=== PATIENT | female | born 1990 | race African-American/Black ===

== ENCOUNTER 2019-10-26 15:36 | Inpatient (IN) | payer MEDICAID ==
[~2019-10-26] VITALS: Ht 157.5 cm; Wt 131.5 kg
[2019-10-26] MEDS ORDERED: CEFAZOLIN SODIUM 1000MG/VIAL ONE ×2 (16:20→17:42)
[2019-10-26] MEDS ORDERED: OXYTOCIN 10 UNITS/ML 1ML ONE (16:20)
[2019-10-26] MEDS ORDERED: EPHEDRINE SULFATE 50MG/ML VIAL ONE (16:20)
[2019-10-26] MEDS ORDERED: FENTANYL CITRATE/PF 50MCG/ML 2ML VIAL ONE (16:20)
[2019-10-26] MEDS ORDERED: MORPHINE SULFATE/PF 1MG/ML 10ML AMP ONE (16:20)
[2019-10-26] MEDS ORDERED: ONDANSETRON HCL 4MG/2ML INJ ONE (16:23)
[2019-10-26] MEDS ORDERED: DEXT 5%/LR + PITOCIN 20UNITS/L 1,000 ML IV SCH (16:40)
[2019-10-26] MEDS ORDERED: LACTATED RINGERS 1,000 ML IV SCH (16:40)
[2019-10-26] MEDS ORDERED: CARBOPROST TROMETHAMINE 250 MCG/ML AMPUL IM PRN (16:45)
[2019-10-26] MEDS ORDERED: METHYLERGONOVINE MALEATE 0.2 MG/ML IM PRN (16:45)
[2019-10-26] MEDS ORDERED: CITRIC ACID/SODIUM CITRATE SOLN 30ML UDC PO SCH (16:45)
[2019-10-26] MEDS ORDERED: NALOXONE HCL 0.4 MG/ML 1ML VIAL IM PRN (16:45)
[2019-10-26] MEDS ORDERED: MISOPROSTOL 200MCG TABLET VG SCH (17:00)
[2019-10-26 17:07] LABS: BASOPHILS % 0.4 % (0.0-2.0); EOSINOPHILS % 0.4 % (0.0-5.0); HEMATOCRIT. 36.2 % (36.0-48.0); HEMOGLOBIN. 11.8 g/dL (12.0-16.0); LYMPHOCYTES % 13.9 % (20.0-50.0); MEAN CORPUSCULAR HEMOGLOBIN 25.4 pg (28.0-32.0); MEAN CORPUSCULAR VOLUME 78.3 fL (81.0-99.0); MEAN PLATELET VOLUME 8.9 fl (7.4-10.4); MONOCYTES % 8.3 % (2.0-8.0); PLATELET 272 x1000/uL (130-400); RED BLOOD CELL COUNT 4.63 mill/uL (4.2-5.4); RED CELL DISTRIBUTION WIDTH 16.9 % (11.6-14.6)
[2019-10-26 17:09] LABS: COLOR URINE DK YELLOW (YELLOW); KETONES URINE TRACE (NEGATIVE); LEUKOCYTE ESTERASE URINE 1+ (NEGATIVE); NITRITE URINE NEGATIVE (NEGATIVE); OCCULT BLOOD URINE 3+ (NEGATIVE); PROTEIN URINE 2+ (NEGATIVE); SPECIFIC GRAVITY URINE 1.026 (1.005-1.030)
[2019-10-26] MEDS ORDERED: TERBUTALINE SULFATE 1MG/ML VIAL SUBCUT ONE (17:15)
[2019-10-26 17:16] LABS: CLARITY URINE CLOUDY (CLEAR)
[2019-10-26 17:29] LABS: INR 0.9; PARTIAL THROMBOPLASTIN TIME 27.9 sec (23.4-31.0); PROTHROMBIN TIME 9.6 sec (9.6-11.0)
[2019-10-26 17:31] LABS: *AMPHETAMINES SCREEN URINE NEGATIVE (NEGATIVE); *BENZODIAZEPINES SCREEN URINE NEGATIVE (NEGATIVE); *COCAINE SCREEN URINE NEGATIVE (NEGATIVE); CANNABINOID URINE SCREEN NEGATIVE (NEGATIVE); METHADONE URINE SCREEN NEGATIVE (NEGATIVE); OPIATES URINE SCREEN NEGATIVE (NEGATIVE); PHENCYCLIDINE URINE SCREEN NEGATIVE (NEGATIVE)
[2019-10-26 17:32] LABS: *BARBITURATES SCREEN URINE NEGATIVE (NEGATIVE)
[2019-10-26 18:17] LABS: HEPATITIS B SURFACE ANTIGEN NEGATIVE
[2019-10-26] MEDS ORDERED: KETOROLAC 60MG/2ML VIAL IM ONE (18:32)
[2019-10-26] MEDS ORDERED: DIPHENHYDRAMINE 50MG/ML VIAL ONE (18:32)
[2019-10-26 21:30] VITALS: BP 121/74
[2019-10-26] MEDS ORDERED: BISACODYL 10MG SUPP PR PRN (21:30)
[2019-10-26] MEDS ORDERED: KETOROLAC 30MG/ML VIAL IV PRN (21:30)
[2019-10-26] MEDS ORDERED: IBUPROFEN 400MG TABLET PO PRN (21:30)
[2019-10-26] MEDS: DEXT 5%/LR + PITOCIN 20UNITS/L 1,000 ML IV SCH (21:30)
[2019-10-26] MEDS ORDERED: RHO(D) IMMUNE GLOBULIN 300 MCG/SYR IM PRN (21:30)
[2019-10-26] MEDS ORDERED: BUTORPHANOL TARTRATE 2 MG/ML VIAL IV PRN (21:45)
[2019-10-26] MEDS ORDERED: KETOROLAC 30MG/ML VIAL IV SCH (21:45)
[2019-10-26] MEDS ORDERED: NALOXONE HCL 0.4 MG/ML 1ML VIAL IV PRN (21:45)
[2019-10-26] MEDS: DIPHENHYDRAMINE 50MG/ML VIAL IV PRN (21:53)
[2019-10-27] VITALS: BP 125/78
[2019-10-27 04:00] VITALS: BP 134/80
[2019-10-27 07:01] LABS: BASOPHILS % 0.1 % (0.0-2.0); EOSINOPHILS % 0.1 % (0.0-5.0); HEMOGLOBIN. 10.4 g/dL (12.0-16.0); LYMPHOCYTES % 13.8 % (20.0-50.0); MEAN CORPUSCULAR HEMOGLOBIN 25.3 pg (28.0-32.0); MEAN CORPUSCULAR VOLUME 77.7 fL (81.0-99.0); MEAN PLATELET VOLUME 8.7 fl (7.4-10.4); MONOCYTES % 6.3 % (2.0-8.0); NEUTROPHILS % 79.7 % (40.0-76.0); PLATELET 248 x1000/uL (130-400); RED BLOOD CELL COUNT 4.12 mill/uL (4.2-5.4); RED CELL DISTRIBUTION WIDTH 16.8 % (11.6-14.6)
[2019-10-27] MEDS: DEXT 5%/LR + PITOCIN 20UNITS/L 1,000 ML IV SCH (07:30)
[2019-10-27 07:45] VITALS: BP 134/81
[2019-10-27] MEDS: DIPHENHYDRAMINE 50MG/ML VIAL IV PRN (11:31)
[2019-10-27 12:00] VITALS: BP 135/79
[2019-10-27 16:00] VITALS: BP 132/79
[2019-10-27 19:30] VITALS: BP 134/85
[2019-10-27] MEDS: IBUPROFEN 800MG TABLET PO PRN (22:28)
[2019-10-28 04:00] VITALS: BP 127/68
[2019-10-28] MEDS: IBUPROFEN 800MG TABLET PO PRN ×2 (04:32→10:39)
[2019-10-28 08:00] VITALS: BP 121/69
[2019-10-28] MEDS ORDERED: IBUP-2030 MT (13:30)
== END 2019-10-28 14:40 | disposition home or self-care (01) | DRG 540 ==
LOC: 8EST NSY 15:36 → OBSVTOIN 15:36 → 8 EST LDRP 16:15 → 8EST 21:51
PROVIDERS: ADMIT Obstetrics & Gynecology; ATTEND Obstetrics & Gynecology
PROC: 10D00Z1 Extraction of Products of Conception, Low, Open Approach (ICD-10-PCS; principal; 2019-10-26)
PROC: 0UB70ZZ Excision of Bilateral Fallopian Tubes, Open Approach (ICD-10-PCS; 2019-10-26)
DX: O77.0 Labor and delivery complicated by meconium in amniotic fluid (principal); O34.211 Maternal care for low transverse scar from previous cesarean delivery; O69.81X0 Labor and delivery complicated by cord around neck, without compression, not applicable or unspecified; O99.214 Obesity complicating childbirth; D62 Acute posthemorrhagic anemia; O90.81 Anemia of the puerperium; Z3A.38 38 weeks gestation of pregnancy; Z37.0 Single live birth; Z30.2 Encounter for sterilization
CPT/HCPCS: 36415; 80305; 81003; 85025; 86592; 86703; 86762; 86850; 86900; 86920; 87340; 88302; 88307; 99281; J0690; J1200; J1885; J2274; J2405; J2590; J3010; J3105; J3490; J7120

== ENCOUNTER 2019-10-30 15:59 | Emergency (ER) | payer MEDICAID ==
[~2019-10-30] VITALS: Ht 157.5 cm; Wt 131.8 kg
[~2019-10-30 15:59] MED LIST: IBUP-2030 MT
[2019-10-30] MEDS ORDERED: ACETAMINOPHEN 325MG TABLET PO ONE (17:15)
[2019-10-30] MEDS ORDERED: SODIUM CHLORIDE 0.9% 1,000 ML IV ONE (17:45)
[2019-10-30 18:15] LABS: BASOPHILS % 0.4 % (0.0-2.0); EOSINOPHILS % 2.4 % (0.0-5.0); HEMATOCRIT. 32.6 % (36.0-48.0); HEMOGLOBIN. 10.6 g/dL (12.0-16.0); LYMPHOCYTES % 11.4 % (20.0-50.0); MEAN CORPUSCULAR HEMOGLOBIN 25.6 pg (28.0-32.0); MEAN CORPUSCULAR VOLUME 78.5 fL (81.0-99.0); MEAN PLATELET VOLUME 7.8 fl (7.4-10.4); MONOCYTES % 4.7 % (2.0-8.0); NEUTROPHILS % 81.1 % (40.0-76.0); PLATELET 340 x1000/uL (130-400); RED BLOOD CELL COUNT 4.15 mill/uL (4.2-5.4); RED CELL DISTRIBUTION WIDTH 17.7 % (11.6-14.6)
[2019-10-30 18:24] LABS: CHLORIDE 107 mEq/L (98-107)
[2019-10-30 18:44] LABS: INR 0.9; PROTHROMBIN TIME 9.6 sec (9.6-11.0)
[2019-10-30 19:09] LABS: HCG SCREEN POSITIVE
[2019-10-30] MEDS ORDERED: HYDRALAZINE HCL 10MG TABLET PO ONE (19:45)
[2019-10-30 20:35] VITALS: BP 183/100
== END 2019-10-30 20:35 | disposition home or self-care (01) ==
LOC: ER 15:59
DX: M54.5 Low back pain (principal); R10.13 Epigastric pain; R51 Headache; Z98.51 Tubal ligation status; Z98.890 Other specified postprocedural states
CPT/HCPCS: 36415; 71045; 72100; 74176; 80053; 84484; 84703; 85025; 85610; 86850; 86900; 86901; 96360; 99285; J7030; 81003